=== PATIENT | female | born 1960 | race Caucasian/White ===

== ENCOUNTER 2024-09-11 11:12 | Outpatient (AMB) | payer MEDICARE, SELFPAY ==
--- NOTE | 2024-09-11 11:20 | MHC.OFFVIS ---
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 Patient states pain began about 1 year ago. She states certain movements trigger her pain. Reports occasional numbness and tingling. Patient takes Ibuprofen PRN with mild relief. Denies any injuries or surgeries to the left elbow. 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 She is left-hand dominant and states that she uses her left arm for most all activities due to right upper extremity chronic weakness and numbness. 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 She states the left elbow develops discomfort along the medial epicondyle when she is lifting or performing pushing and pulling activities. She has had no treatment to date on the left upper extremity. She also experiences occasional numbness and tingling which radiates down the arm into the 3rd 4th and 5th digit. [facility] Surgical History (Updated 09/11/24 @ 11:24 by SUNNY Pritchett) H/O brain surgery Social History (Updated 09/11/24 @ 11:23 by SUNNY Pritchett) Patient Tobacco Use Status: Former Tobacco user Current occupational status: retired Current occupation: left handed Review of Systems Const All systems reviewed & are unremarkable except as noted in HPI and below Physical Exam Vital Signs: BMI result Body Mass Index 26.6 Const General: cooperative and no acute distress Orientation/consciousness: patient oriented x3 Resp Effort & Inspection: normal respiratory effort and able to speak in complete sentences Cardio Peripheral pulses: Peripheral pulses 2+ throughout Neuro General: patient oriented x3 Extrem Other: Bilat Elbow skin intact. No erythema or swelling. ROM full without pain. Tenderness over the medial epicondyle and pain with resisted wrist flexion, Lt>Rt . NVI. Results Reviewed Results Reviewed: X-rays of the left elbow obtained in the office today are negative for any acute or chronic abnormalities. Assessment & Plan Assessment & Plan (1) Medial epicondylitis, left elbow: Code(s): M77.02 - Medial epicondylitis, left elbow Category: Medical (2) Lateral epicondylitis, right elbow: Code(s): M77.11 - Lateral epicondylitis, right elbow Category: Medical Plan We discussed options which include PT, NSAIDs and injections. She will defer on the injection today and proceed with PT and NSAIDs. If symptoms persist she will contact me for an injection, otherwise, prn. She was also fit for an armband for the left elbow today . Orders: Orders OT Evaluation and Treatment Today M77.02 - Medial epicondylitis, left elbow, M77.11 - Lateral epicondylitis, right elbow XR elbow LT min 3V Today M25.522 - Pain in left elbow Coding Level of Care Code New Pt Level 3 ([id number]) Complex EM visit Add On G2211 Diagnoses Medial epicondylitis, left elbow M77.02 Lateral epicondylitis, right elbow M77.11
[2024-09-11 11:21] VITALS: BMI 26.6
--- OUTSIDE RECORDS SUMMARY | 2024-09-11 15:04 | XMS_ITS | Data Portability ---
Author Organization [facility] Address [address] [place] [address] Assessment Encounter Date Assessment Date Assessment LastModified by Organization Details LastModified Time 07/20/2020 07/20/2020 #1 patient is at home, with No one present in the room #2 provider is at [facility] in a secure private location #3 This is a phone visit, unable to connect over video #4 Verbal &/or Written consent obtained #5 Length of medical discussion __11_ minutes Not available 07/20/2020 18:39:57 01/26/2021 01/26/2021 #1 patient is at home, with No one present in the room #2 provider is at [facility] in a secure private location #3 This is a phone visit, unable to connect over video #4 Verbal &/or Written consent obtained #5 Length of medical discussion _10__ minutes Not available 02/01/2021 18:40:00 02/24/2022 02/24/2022 Care Team/Specialists reviewed and updated. Reviewed recent hospitalizations for the past year. I reviewed Medicare covered prevention services and USPSTF recommendations for this patient. The following are recommended for you: Not available 02/24/2022 13:00:25 Plan of Treatment Reminders Order Date Submit Date Provider Last Modified By Organization Details Last Modified Time Details Appointments None recorded. Lab CMP, serum or plasma 2021 022 [facility], [address], [facility], [place], [address], 04:51:13 lipid panel, serum 2021 022 RAYNE [facility], [address], [address], [place], [address], 2 04:51:12 Referral dermatolog ist referral 2019 020 [facility] Jordyn Meng, [address] [facility], [address], [place], [address], 0 11:04:28 gastroente rologist referral - 61 yo F for routine screening, last was normal in 2011 022 [facility] Gastroenterol ogist, [address] [facility], [place], [address], 2 09:23:34 Procedures None recorded. Surgeries None recorded. Imaging None recorded. Medication Orders Intrarosa 6.5 mg vaginal insert [address] [facility], [address] [place] [address], [address], 2 09:39:29 lisinopril 40 mg tablet 2022 023 [facility][id number], [address] [place], [address], 3 11:41:39 Patient TargetsNo targets recorded. Patient Instructions Encounter Date Encounter Id Patient Instructions Last Modified By Organization Details Last Modified Time 07/20/2020 [id number] high blood pressure: care instructions Not available 07/20/2020 18:37:19 learning about high blood pressure Not available 07/20/2020 18:37:19 skin lesions: care instructions Not available 07/20/2020 18:31:40 01/26/2021 [id number] Decreased Female Libido: Care Instructions Not available 02/01/2021 18:35:31 02/24/2022 [id number] high blood pressure: care instructions Not available 02/24/2022 09:14:52 learning about high blood pressure Not available 02/24/2022 09:14:51 learning about colonoscopy Not available 02/24/2022 09:14:52 advance directives: care instructions Not available 02/24/2022 09:14:52 learning about breast cancer screening Not available 02/24/2022 09:14:52 preventing osteoporosis: care instructions Not available 02/24/2022 09:14:52 vision screen* Not available 0 02/24/2022 09:14:51 09/22/2022 [id number] high blood pressure: care instructions Not available 09/22/2022 11:41:37 learning about high blood pressure Not available 09/22/2022 11:41:37 body mass index: care instructions Not available 09/22/2022 11:51:58 Reason for Referral Paediatric Thoracic Physician Referral for S kin lesion Referring Physician: Kallie Hutson, [facility], Encounter Date: 07/20/2020 Materials Specialist Referral for Screening for malignant neoplasm of colon 61 yo F for routine screening, last was normal in 2011 Referring Physician: Reena Reagan [facility] Medicine, Encounter Date: 02/24/2022 Results Created Date Observation Date Name Description Value Unit Range Abnormal Flag Note LastModifiedBy Organization Detail LastModifiedTime 02/25/20 22 02/25/2022 LIPID PANEL WITH REFLE X TO DIREC T LDL cholesterol, total 142 mg/dL <200 normal Not Available [facility] [address], [address], 02/25/2022 04:51:12 02/25/20 22 02/25/2022 LIPID PANEL WITH REFLE X TO DIREC T LDL HDL cholesterol 36 mg/dL > or = 50 low Not Available [facility] [address], [address], 02/25/2022 04:51:12 02/25/20 22 02/25/2022 LIPID PANEL WITH REFLE X TO DIREC T LDL triglyceride s 113 mg/dL <150 normal Not Available [facility] [address] [place], [place], [address], 02/25/2022 04:51:12 02/25/20 22 02/25/2022 LIPID PANEL WITH REFLE X TO DIREC T LDL LDL-choleste rol 85 mg/dL _(tamiko c) normal Refer ence range : <100 Tiffany able range <100 mg/dL for prima ry preve ntion ; <70 mg/dL for patie nts with CHD or diabe tic patie nts with > or = 2 CHD risk facto rs. LDL-C is now calcu lated using the Maisha n-Hop kins calcu alexandre n, which is a valid ated novel metho d provi delon kristina r accur acy than the Fried uriel equat ion in the estim ation of LDL-C . Maisha layne SS et al. NIC. 2013; 310(1 9): 2061- 2068 (http ://ed ucati on.Qu robertNextlanding. DefenCall/f aq/FA Q164) Not Available [facility] [address], [place], [address], 02/25/2022 04:51:12 02/25/20 22 02/25/2022 LIPID PANEL WITH REFLE X TO DIREC T LDL chol/HDLC ratio 3.9 (calc ) <5.0 normal Not Available [facility] [address], [place], [address], 02/25/2022 04:51:12 02/25/20 22 02/25/2022 LIPID PANEL WITH REFLE X TO DIREC T LDL non HDL cholesterol 106 mg/dL _(tamiko c) <130 normal For patie nts with diabe kota plus 1 major ASCVD risk facto r, treat ing to a non-H DL-C goal of <100 mg/dL (LDL- C of <70 mg/dL ) is consi dered a thera peuti c optio n. Not Available [facility] [place] [facility] [address], [place], [address], 02/25/2022 04:51:12 02/25/20 22 02/25/2022 COMPR EHENS HAZEL METAB OLIC PANEL glucose 90 mg/dL 65-139 normal Non-f astin g refer ence inter blanca Not Available [facility] [place] [facility] [address], [place], [address], 02/25/2022 04:51:13 02/25/20 22 02/25/2022 COMPR EHENS HAZEL METAB OLIC PANEL urea nitrogen (BUN) 9 mg/dL 7-25 normal Not Available [facility] [place] [facility] [address], [place], [address], 02/25/2022 04:51:13 02/25/20 22 02/25/2022 COMPR EHENS HAZEL METAB OLIC PANEL creatinine 0.94 mg/dL 0.50-1 .05 normal Not Available [facility] [place] [facility] [address], [place], [address], 02/25/2022 04:51:13 02/25/20 22 02/25/2022 COMPR EHENS HAZEL METAB OLIC PANEL eGFR 68 mL/mi n/1.7 3m2 > or = 60 normal The eGFR is based on the CKD-E PI 2020 equat ion. To calcu late the new eGFR from a previ ous Creat inine or Cysta tin C resul t, go to https ://ww w.kid kristy.o rg/krisit alonso s/ kdoqi /gfr% 5Fcal culat or Not Available [facility] [place] [facility] [address], [place], [address], 02/25/2022 04:51:13 02/25/20 22 02/25/2022 COMPR EHENS HAZEL METAB OLIC PANEL BUN/creatini ne ratio NOT APPLIC ABLE (calc ) 6-22 Not Available [facility] [address], [place], [address], 02/25/2022 04:51:13 02/25/20 22 02/25/2022 COMPR EHENS HAZEL METAB OLIC PANEL sodium 138 mmol/ L 135-14 6 normal Not Available [facility] [address], [place], [address], 02/25/2022 04:51:13 02/25/20 22 02/25/2022 COMPR EHENS HAZEL METAB OLIC PANEL potassium 4.7 mmol/ L 3.5-5. 3 normal Not Available [facility] [address], [place], [address], 02/25/2022 04:51:13 02/25/20 22 02/25/2022 COMPR EHENS HAZEL METAB OLIC PANEL chloride 104 mmol/ L 98-110 normal Not Available [facility] [address], [place], [address], 02/25/2022 04:51:13 02/25/20 22 02/25/2022 COMPR EHENS HAZEL METAB OLIC PANEL carbon dioxide 28 mmol/ L 20-32 normal Not Available [facility] [address], [place], [address], 02/25/2022 04:51:13 02/25/20 22 02/25/2022 COMPR EHENS HAZEL METAB OLIC PANEL calcium 9.5 mg/dL 8.6-10 .4 normal Not Available [facility] [address], [place], [address], 02/25/2022 04:51:13 02/25/20 22 02/25/2022 COMPR EHENS HAZEL METAB OLIC PANEL protein, total 8.1 g/dL 6.1-8. 1 normal Not Available [facility] [address], [place], [address], 02/25/2022 04:51:13 02/25/20 22 02/25/2022 COMPR EHENS HAZEL METAB OLIC PANEL albumin 4.5 g/dL 3.6-5. 1 normal Not Available [facility] [address], [place], [address], 02/25/2022 04:51:13 02/25/20 22 02/25/2022 COMPR EHENS HAZEL METAB OLIC PANEL globulin 3.6 g/dL_ (calc ) 1.9-3. 7 normal Not Available [facility] [address], [place], [address], 02/25/2022 04:51:13 02/25/20 22 02/25/2022 COMPR EHENS HAZEL METAB OLIC PANEL albumin/glob ulin ratio 1.3 (calc ) 1.0-2. 5 normal Not Available [facility] [address], [place], [address], 02/25/2022 04:51:13 02/25/20 22 02/25/2022 COMPR EHENS HAZEL METAB OLIC PANEL bilirubin, total 0.5 mg/dL 0.2-1. 2 normal Not Available [facility] [address], [place], [address], 02/25/2022 04:51:13 02/25/20 22 02/25/2022 COMPR EHENS HAZEL METAB OLIC PANEL alkaline phosphatase 81 U/L 37-153 normal Not Available [facility] [address], [place], [address], 02/25/2022 04:51:13 02/25/20 22 02/25/2022 COMPR EHENS HAZEL METAB OLIC PANEL AST 24 U/L 10-35 normal Not Available [facility] [place] [facility] [address], [place], [address], 02/25/2022 04:51:13 02/25/20 22 02/25/2022 COMPR EHENS HAZEL METAB OLIC PANEL ALT 19 U/L 6-29 normal Not Available [facility] [place] [facility] [address], [place], [address], 02/25/2022 04:51:13 02/25/20 22 02/24/2022 visio n scree n* Test Type Snelle n Letter Not Available In-House Te st For Internal Use Only, Do Not Delete/merge, 02/24/2022 09:09:12 02/25/20 22 02/24/2022 visio n scree n* Wearing Corrective Lenses No Not Available In-Megan se Test For Internal Use Only, Do Not Delete/merge, 02/24/2022 09:09:12 02/25/20 22 02/24/2022 visio n scree n* Right (OD) 20/50 Not Available In-Hous e Test For Internal Use Only, Do Not Delete/merge, 02/24/2022 09:09:12 02/25/20 22 02/24/2022 visio n scree n* Left (OS) 20/50 Not Available In-House Test For Internal Use Only, Do Not Delete/merge, 02/24/2022 09:09:12 02/25/20 22 02/24/2022 visio n scree n* Both (OU) 20/50 Not Available In-House Test For Internal Use Only, Do Not Delete/merge, 02/24/2022 09:09:12 08/02/20 21 08/02/2021 CT, angio gram, head + neck, w/wo contr ast No observ ation record ed. [facility] [address], [place], [address], 08/04/2021 22:04:32 08/02/20 21 08/02/2021 CT, angio gram, head + neck, w/wo contr ast No observ ation record ed. ALEXANDRE [facility] [address], [place], [address], 08/04/2021 22:04:32 04/18/20 23 04/10/2023 colon oscop y scree osmany (PROC ) No observ ation record ed. [facility] Gastroenterol ogist [address] [place], [address], 04/18/2023 08:57:35 Result Notes None recorded. Problems Name Problem SNOMED Code Status Onset Date Resolution Date Notes Provider Name and Address Organization Details Recorded Time Chronic hepatiti s C 013621299 Completed 02/18/2019 Marilyharsh Becker [facility] 9 10:31:58 [facility] l hyperten rosa 68866432 Active Allie Larsen, RN [facility] 6 13:12:16 Malaise and fatigue 303111141 Completed 11/21/2016 Marily [facility] 7 09:45:32 Neoplasm of brain 416480432 Completed 200702/18/2019 NEOPLASM , BRAIN; [facility] 9 10:32:13 Joint pain 68645516 Completed 201008/19/2013 ARTHRALG IA Leisaquin Houston [facility] 6 11:25:14 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; off balance , problems with stairs Leisa Houston [facility] 6 11:25:14 Hyperhid rosis 569857545 Completed 201108/19/2013 HYPERHID ROSIS Leisa Houston [facility] 6 11:25:14 Acute hepatiti s C 388104498 Completed 200908/19/2013 HEPATITI S C WITHOUT HEPATIC COMA Leisa Houston [facility] 6 11:25:14 Abnormal involunt naty movement 171669799 Active 2007 TREMOR Leisa Houston [facility] 6 11:25:14 Neck pain 62493179 Completed 200902/18/2019 NECK PAIN Marilyharsh Becker [facility] 9 10:36:09 Acute bronchit is 24543558 Completed 201008/19/2013 BRONCHIT IS, VIRAL Leisaquin Houston [facility] 6 11:25:14 Depressi ve disorder 23594158 Active 2007 DEPRESSI ON; improved on antidepr essants Leisa Houston [facility] 6 11:25:14 Malaise and fatigue 107390013 Completed 201008/19/2013 [facility] 7 09:45:32 Shoulder joint pain 352211685 Completed 201011/21/2016 [facility] 7 09:45:28 Poor short-te rm memory 269449201 Active 2016 [facility] 7 13:19:23 History of hepatiti s C 85308104207 101 Active 2018 [facility] 9 10:31:55 History of malignan t neoplasm of brain 630605822 Active 2018 [facility] 9 10:32:10 Reduced libido 7199824 Active 2020 Reena Reagan PA-C [address] [place], [address] , [facility] 1 16:37:45 Problem Notes None recorded. Procedures Surgical History Date Name Laterality Status Provider Name and Address Organization Details Recorded Time 6 Joint Surgery completed Jennifer Mcnamara D.O. [facility] 08/19/2013 12:30:06 Imaging Results Imaging Date Name Status LastModified by Organization Details Last Modified Time 08/02/2021 CT, angiogram, head + neck, w/wo contrast completed [facility] [address], [place], [address], 08/04/2021 22:04:32 08/02/2021 CT, angiogram, head + neck, w/wo contrast completed [facility] [address], [place], [address], 08/04/2021 22:04:32 04/10/2023 colonoscopy screening (PROC) completed [address] Materials Specialist [address] [place], [address], 04/18/2023 08:57:35 Procedure Notes None recorded. Medical Equipment None Reported. Allergies Allergen ID Allergen Name Allergen Category Reaction Reaction Severity Criticality Documentation Date Start Date Code Code System Note Provider Name and Address Organization Details Recorded Time 420 codeine medicatio n itching Not available Not available 06/10/20122007 2670 RxNorm Not Available [facility] 2 12:27:10 Medications Name Sig Start Date Stop Date Status Note LastModified by Organization Details LastModified Time Estring 2 mg (7.5 mcg/24 hour) vaginal ring Insert 1 vaginal ring by vaginal route. 02/24 completed Not Available Not Available Not Available trazodone 50 mg tablet Take 1 tablet 3 times a day by oral route as directed . active Non-Rio t Not Available Not Available Not Available aspirin 325 mg tablet 1 DAILY PO 2011 active Not Available Not Available Not Avai lable metoprolo l succinate ER 50 mg tablet,ex tended release 24 hr TAKE ONE TABLET BY MOUTH ONCE DAILY active Not Available Not Available No t Available prednison e 20 mg tablet 05/14 completed Not Available Not Available Not Available clonazepa m 0.5 mg tablet 1 tab PO QHS 11/06 completed from her psychiat rist Not Available Not Available Not Available metoprolo l succinate ER 100 mg tablet,ex tended release 24 hr TAKE 1 TABLET BY MOUTH EVERY DAY active Not Available Not Available No t Available sertralin e 100 mg tablet 05/14 completed Not Available Not Available Not Available atenolol 25 mg tablet Take 1 tablet every day by oral route as directed . active Not Available Not Available No t Available clobetaso l 0.05 % topical cream 05/14 completed Not Available Not Available Not Available Neurontin 600 mg tablet 1 TAB PO QDAILY 05/14 completed Not Available Not Available Not Available amlodipin e 5 mg tablet Take 1 tablet every day by oral route. 05/21 completed Not Available Not Available Not Available triamcino lone acetonide 0.1 % topical cream APPLY A THIN LAYER TO THE AFFECTED AREA(S) BY TOPICAL ROUTE 2 TIMES PER DAY 03/11 completed Not Available Not Available Not Available oxycodone -acetamin ophen 5 mg-325 mg tablet 05/14 completed Not Available Not Available Not Available Tessalon Perles 100 mg capsule Take 1 capsule 3 times a day by oral route for 5 days. 11/21 completed Not Available Not Available Not Available Elavil 25 mg tablet Take 1 tablet every day by oral route. active from psychiat rist in late Apr. Pt doesn't remember exact dose. Not Available Not Available Not Available trazodone 100 mg tablet one TAB PO QHS PRN 2011 active from psychiat rist Not Available Not Available Not Available amlodipin e 10 mg tablet TAKE 1 TABLET BY MOUTH EVERY DAY. NO FURTHER REFILLS WITHOUT APPOINTM ENT IN CLINIC active Not Available Not Available No t Available clonazepa m 2 mg tablet 05/14 completed Not Available Not Available Not Available hydrochlo rothiazid e 12.5 mg capsule Take 1 capsule every day by oral route. 2013 active Not Available Not Available Not Avai lable lisinopri l 30 mg tablet Take 1 tablet every day by oral route. 2014 active Not Available Not Available Not Avai lable hydrocodo ne 5 mg-acetam inophen 500 mg tablet 05/14 completed Not Available Not Available Not Available hydrochlo rothiazid e 25 mg tablet Take 1 tablet every day by oral route. 2014 active Not Available Not Available Not Avai lable estradiol 0.01% (0.1 mg/gram) vaginal cream Insert 4 g every day by vaginal route as directed for 14 days. 02/24 completed Not Available Not Available Not Available lisinopri l 40 mg tablet TAKE 1 TABLET BY MOUTH EVERY DAY 2023 active Not Available Not Available Not Avai lable amoxicill in 500 mg-potass ium clavulana te 125 mg tablet 05/14 completed Not Available Not Available Not Available escitalop arthur 20 mg tablet 1 PO ONCE DAILY ; MEDICATI ON PROVIDED BY MARILOU Perez PHYSICOC N active from psychiat rist Not Available Not Available Not Available Premarin 0.625 mg tablet 1/2 TO 1 TAB PO DAILY DIRECTED 05/14 completed Not Available Not Available Not Available clonazepa m 0.5 mg po at bedtime active by psych Not Available Not Available No t Available multivita min 11/06 completed Not Available Not Available Not Available Tylenol Arthritis Pain 2 TABS PO QHS PRN SHOULDER PAIN 05/14 completed Not Available Not Available Not Available Fish Oil 300 mg-1,000 mg capsule 1 CAPSULE PO DAILY 2011 active forgets to take this usually Not Available Not Available Not Available hydrochlo rothiazid e 12.5 mg tablet Take 1 tablet every day by oral route. 2014 active Disconti nued at patients request Not Available Not Available Not Available Harvoni 90 mg-400 mg tablet Take 1 tablet every day by oral route. 12/25 completed Not Available Not Available Not Available Vitamin B12 11/06 completed OTC Not Available Not Available Not Available Intrarosa 6.5 mg vaginal insert Insert 1 vaginal insert every day by vaginal route for 14 days. 02/24 completed Not Available Not Available Not Available Vitals Date Recorded Body height Provider Name an d Address Organization Details Last Updated DateTime 03/11/2021 165.1 cm Nithya [facility] 03/11/2021 11:00:03 Date Recorded Body mass index (BMI) Body weight Provider Name and Address Organization Details Last Updated DateTime 03/11/2021 24.1 kg/m2 99714.89 g Nithya [facility] 03/11/2021 11:00:22 Date Recorded Oxygen saturation Oxygen saturation in Arterial blood by Pulse oximetry Provider Name and Address Organization Details Last Updated DateTime 03/11/2021 99 % 99 % Nithya [facility] 03/11/2021 11:04:26 Date Recorded Heart rate Provider Name an d Address Organization Details Last Updated DateTime 03/11/2021 64 /min Nithya [facility] 03/11/2021 11:04:35 Date Recorded Body height Provider Name an d Address Organization Details Last Updated DateTime 02/24/2022 165.1 cm Nithya [facility] 02/24/2022 08:48:22 Date Recorded Body mass index (BMI) Body weight Provider Name and Address Organization Details Last Updated DateTime 02/24/2022 27.3 kg/m2 10585.55 g Nithya [facility] 02/24/2022 08:48:30 Date Recorded Heart rate Provider Name an d Address Organization Details Last Updated DateTime 02/24/2022 59 /min Nithya [facility] 02/24/2022 09:04:08 Date Recorded Oxygen saturation Oxygen saturation in Arterial blood by Pulse oximetry Provider Name and Address Organization Details Last Updated DateTime 02/24/2022 99 % 99 % Nithya [facility] 02/24/2022 09:04:19 Date Recorded Body height Provider Name an d Address Organization Details Last Updated DateTime 09/22/2022 165.1 cm Nithya [facility] 09/22/2022 11:32:21 Date Recorded Body mass index (BMI) Body weight Provider Name and Address Organization Details Last Updated DateTime 09/22/2022 30.5 kg/m2 26460.5 g Nithya [facility] 09/22/2022 11:32:40 Date Recorded Oxygen saturation Oxygen saturation in Arterial blood by Pulse oximetry Provider Name and Address Organization Details Last Updated DateTime 09/22/2022 99 % 99 % Nithya [facility] 09/22/2022 11:34:47 Date Recorded Heart rate Provider Name an d Address Organization Details Last Updated DateTime 09/22/2022 61 /min Nithya [facility] 09/22/2022 11:34:50 Date Recorded Systolic blood pressure Diastolic blood pressure Provider Name and Address Organization Details Last Updated DateTime 03/11/2021 135 mm[Hg] 83 mm[Hg] Nithya [facility] 03/11/2021 11:05:00 Date Recorded Systolic blood pressure Diastolic blood pressure Provider Name and Address Organization Details Last Updated DateTime 02/24/2022 132 mm[Hg] 83 mm[Hg] Nithya [facility] 02/24/2022 08:54:42 Date Recorded Systolic blood pressure Diastolic blood pressure Provider Name and Address Organization Details Last Updated DateTime 09/22/2022 135 mm[Hg] 85 mm[Hg] Nithya [facility] 09/22/2022 11:35:34 Date Recorded Systolic blood pressure Diastolic blood pressure Provider Name and Address Organization Details Last Updated DateTime 09/22/2022 126 mm[Hg] 68 mm[Hg] Reena Reagan PA-C [address] [place] [address], [id number] 09/22/2022 11:50:42 Social History Question Answer Notes LastModified by Organizat ion Details LastModified Time Tobacco Smoking Status Former Smoker as of 02/2016 Not Available [facility] 06/15/2020 03:15:23 Do You Have An Advance Directive? Yes [id number] Information not available 06/15/2020 What Is Your Level Of Alcohol Consumption? None [id number] Information not available 06/15/2020 Are You Blind Or Do You Have Difficulty Seeing? No Information not available 02/24/2022 Is Blood Transfusion Acceptable In An Emergency? Yes Information not available 02/24/2022 What Is Your Level Of Caffeine Consumption? Moderate [id number] Information not available 06/15/2020 How Much Tobacco Do You Chew? None [id number] Information not available 06/15/2020 In The 14 Days Before Symptom Onset, Have You Had Close Contact With A Laboratory-confir med COVID-19 While That Case Was Ill? No Information not available 02/24/2022 In The 14 Days Before Symptom Onset, Have You Had Close Contact With A Person Who Is Under Investigation For COVID-19 While That Person Was Ill? No Information not available 02/24/2022 Are You Currently Employed? No [id number] Information not available 06/15/2020 Are You Deaf Or Do You Have Serious Difficulty Hearing? No Information not available 02/24/2022 What Type Of Diet Are You Following? REGULAR [id number] Information not available 06/15/2020 Do You Or Have You Ever Used E-cigarettes Or Vape? Never Used Electronic Cigarettes [id number] Information not available 06/15/2020 Education 12 Information no t available 08/19/2013 What Is Your Occupation? Unemployed [id number] Information not available 06/15/2020 How Many Days Of Moderate To Strenuous Exercise, Like A Brisk Walk, Did You Do In The Last 7 Days? 5 Information not available 02/24/2022 On Those Days That You Engage In Moderate To Strenuous Exercise, How Many Minutes, On Average, Do You Exercise? 60 Information not available 02/24/2022 Have There Been Any Changes To Your Family Or Social Situation? No Information no t available 02/24/2022 When Did You Quit Smoking? 6-10yearssinc [email or web address] e Information not available 02/24/2022 Are There Any Guns Present In Your Home? No [id number] Information not available 06/15/2020 Which Of Your Hands Is Dominant? Right Information not available 02/24/2022 Hard Of Hearing Or Deaf In One Or Both Ears? No Information not available 07/13/2016 Single Or Multi-level Home/work? Multi Level Home Information not available 11/21/2016 What Is Your Home Situation? Other Information not available 02/24/2022 Legally Blind In One Or Both Eyes? No Information no t available 07/13/2016 Live Alone Or With Others? With Others Information not available 08/19/2013 [place] - Do You Sometimes Drink Beer, Wine, Or Other Alcoholic Beverages? No Information not available 06/25/2017 [place] - How Many Times In The Past Year Have You Used An Illegal Drug Or Used A Prescription Medication For Non-medical Reasons? 0 Information not available 06/25/2017 [place] - Women >18+ And Men >65: How Many Times In The Past Year Have You Had 4 Or More Drinks In A Day? 0 Information not available 06/25/2017 Are You Able To Care For Yourself At Home Including Activities Of Bathing, Dressing, And Walking? Yes Information not available 11/21/2016 Are You Able To Handle Your Own Medications, Money/finances, Shopping, And Housekeeping Chores? Yes Information not available 11/21/2016 Have You Been Hospitalized In The Past 12 Months? No [email or web address] Information not available 02/18/2019 Homeless Not Homeless Living With Daughter [email or web address] Information not available 02/18/2019 In The Past Month, Was There Any Day When You Or Someone In Your Family Went Hungry Because You Didn't Have Money For Food? No [email or web address] Information not available 05/21/2018 Do You Need Help Finding Clothing Or Other Supplies For Yourself Or For Your Children? No [email or web address] Information not available 05/21/2018 Do You Need Medicine But Cannot Buy It Because It Is Too Expensive? No [email or web address] Information not available 05/21/2018 Do You Need Transportation To Medical Appointments? No Information not available 05/21/2018 Do You Worry That You Can't Pay Your Utility Bill(s)? (electric, Gas, Heating Oil, Telephone) No [email or web address] Information not available 05/21/2018 Do You Prefer To Learn By: All Of The Above [email or web address] Information not available 02/18/2019 Do You Have Any Of The Following Barriers To Learn: I Cannot Read [email or web address] Information not available 02/18/2019 Last [facility] Completion Date 09/22/2022 Information not available 09/22/2022 Marital Status jerrell Blake n not available 08/19/2013 Do You Have A Medical Power Of Kettle Coordinator? No Information not available 02/24/2022 What Was The Date Of Your Most Recent Tobacco Screening? 09/22/2022 Information not available 09/22/2022 How Many Children Do You Have? 1 Information not available 02/24/2022 Do You Have Any Pets? Yes Information not available 02/24/2022 What Is Your Relationship Status? Information not available 02/24/2022 Do You Use Your Seat Belt Or Car Seat Routinely? Yes [id number] Information not available 06/15/2020 Seat Belts Used Routinely Yes [email or web address] Information not available 02/18/2019 Are You Sexually Active? No [id number] Information not available 06/15/2020 Do You Have Smoke And Carbon Monoxide Detectors In Your Home? Yes [id number] Information not available 06/15/2020 At What Age Did You Start Smoking Tobacco? 18 [id number] Information not available 06/15/2020 Are You Passively Exposed To Smoke? No Information no t available 02/24/2022 Do You Or Have You Ever Used Smokeless Tobacco? Never Used Smokeless Tobacco [id number] Information not available 06/15/2020 Are There Any Smokers In Your House? No Information not available 02/24/2022 How Much Tobacco Do You Smoke? No [id number] Information not available 06/15/2020 Do You Use Sunscreen Routinely? Yes [id number] Information not available 06/15/2020 How Many Years Have You Smoked Tobacco? 30 [id number] Information not available 06/15/2020 Year In School 12 [email or web address] Informatio n not available 11/21/2016 Sex: Female Functional Status Question Answer Note LastModified by Organizat ion Details LastModified Time Do you have transportation difficulties? No Information not available 02/24/2022 Are you able to care for yourself? Yes [id number] Information not available 06/15/2020 What is your exercise level? Moderate Information not available 02/24/2022 Mental Status Question Answer Note LastModified by Organization D etails LastModified Time Do you have difficulty concentrating, remembering or making decisions? No Information no t available 02/24/2022 Family History Relationship Description Onset Age of this Age Resolved Age Notes LastModified by Organization Details LastModified Time Mother Hypertensive disorder previo usly record ed as Hypert ension [email or web address] Not available 09/10/2015 10:57:51 Mother Rupture of aorta 80 80 Not available 2017 11:03:31 Father Hypertensive disorder previo usly record ed as Hypert ension [email or web address] Not available 09/10/2015 10:57:51 Maternal Aunt Diabetes mellitus Not available 08/14 10:57:51 Unspecified Relation Heart disease [email or web address] Not available 08/14 10:57:51 Medical History Condition Response Gout N Anxiety/Depression N Renal Failure N Kidney Stones N Breast Cancer N Erectile Dysfunction N Lung Cancer N Testicular Cancer N Reflux Disease (GERD/Heartburn/Reflux) N Incontinence N Hepatitis (A,B or C) N Drug Abuse/Addiction N Chronic Neck or Back Pain N Post Traumatic Stress Disorder N Headaches/Migraines N Alcoholism N Tuberculosis or a Positive PPD N Hemorrhoids N Seizure Disorder (Epilepsy) N Frequent Sinus Infections N Frequent Ear Infections N Blood Clot N Other type of Cancer N Stroke N ADHD N Endometriosis N High Cholesterol N Colorectal Cancer N Skin Cancer N Rheumatoid Arthritis N Schizophrenia N Fibromyalgia N Panic Disorder N Irritable Bowel Syndrome N Chronic Fatigue Syndrome N Osteoarthritis N Scoliosis N Thyroid Disorder or Cancer N Frequent Urinary Tract Infections N Ulcers or Gastrointestinal Bleed N Prostate Cancer N Gallstones N Eating Disorder N PreDiabetes N Anemia N COPD (emphysema or chronic bronchitis) N Diabetes N Cervical/Uterine/Ovarian Cancer N Cataracts N Benign Prostate Hyperplasia (BPH) N Allergic Rhinitis N Insomnia N Eczema N Obsessive Compulsive Disorder (OCD) N Asthma N Heart Attack N Lupus N Psoriasis N Crohn's Disease or Ulcerative Colitis N Bipolar Disorder N Autism N Sleep Apnea N AIDS or HIV N Heart Disease N Hypertension N Osteoporosis N Gynecological History Statement/Question Response Menses Monthly N If Post Menopausal, Age at Menopause 41 Current Control Method Menopause Obstetrics History GPAL:G 1 P 1 0 0 1 Type Value Full Term 1 Living 1 Total 1 Immunizations Vaccine Type Date Status Note Provider Name and Address Organization Details Recorded Time Influenza, split virus, quadrivalent, PF 017 completed Not Available [facility] 08/30/2019 02:13:19 Hep A, adult 018 completed Not Available [facility] 08/30/2019 02:13:22 Hep B, adult 018 completed Not Available [facility] 08/30/2019 02:13:18 Hep B, adult 018 completed Not Available [facility] 08/30/2019 02:13:30 Influenza, split virus, trivalent, preservative 003 completed Not Available [facility] 06/10/2012 14:19:10 Influenza, split virus, trivalent, preservative 010 completed Not Available [facility] 09/13/2019 02:10:44 Td (adult), 2 Lf tetanus toxoid, preservative free, adsorbed 008 completed Not Available [facility] 06/10/2012 14:19:10 pneumococcal polysaccharide PPV23 010 completed Not Available [facility] 09/13/2019 02:10:44 Influenza, split virus, quadrivalent, PF 018 cancelled patient objection Not Available [facility] 08/30/2019 02:13:37 Tdap 019 completed Not Available [facility] 08/30/2019 02:13:59 Influenza, split virus, quadrivalent, PF 020 [facility] 16:28:51 Influenza, split virus, quadrivalent, PF 014 completed Not Available [facility] 08/30/2019 02:12:34 Influenza, split virus, quadrivalent, PF 016 completed Not Available [facility] 08/30/2019 02:12:53 Past Encounters Encounter ID Performer Location Encounter Start Date Encounter Closed Date Diagnosis/Indication Diagnosis SNOMED-CT Code Diagnosis ICD10 Code Diagnosis Note [id number] [address] 06/09/2012 19:01:22 06/09/2012 19:01:[id number] [place] [address] 06/09/2012 19:01:22 06/09/2012 19:01:[id number] [address] 06/09/2012 19:01:22 06/09/2012 19:01:[id number] [place] [address] 06/09/2012 19:01:22 06/09/2012 19:01:22 [id number] [facility] [address] [place] [address] 06/09/2012 19:01:22 06/09/2012 19:01:22 [id number] [facility] [address] [place] [address] 06/09/2012 19:01:22 06/09/2012 19:01:22 [id number] [facility] [address] [place] [address] 06/09/2012 19:01:22 06/09/2012 19:01:22 [id number] [facility] [address] [place] [address] 06/09/2012 19:01:22 06/09/2012 19:01:22 [id number] [facility] [address] [place] [address] 06/09/2012 19:01:23 06/09/2012 19:01:23 [id number] [facility] [address] [place] [address] 06/09/2012 19:01:23 06/09/2012 19:01:23 [id number] [facility] [address] [place] [address] 06/09/2012 19:01:23 06/09/2012 19:01:23 [id number] [facility] [address] [place] [address] 06/09/2012 19:01:23 06/09/2012 19:01:23 [id number] [facility] [address] [place] [address] 06/09/2012 19:01:23 06/09/2012 19:01:23 [id number] [facility] [address] [place] [address] 04/20/2008 00:00:00 [id number] [facility] [address] [place] [address] 04/20/2011 00:00:00 [id number] [facility] - [facility] [address] [place] [address] 05/05/2010 00:00:00 [id number] [facility] - [facility] [address] [place] [address] 03/21/2010 00:00:00 [id number] [facility] - [facility] [address] [facility] [place] [address] 10/26/2010 00:00:00 [id number] [facility] - [facility] [address] [facility] [place] [address] 06/22/2010 00:00:00 [id number] [facility] - [facility] [address] [place] [address] 03/12/2012 00:00:00 [id number] [facility] - [facility] [address] [facility] [place] [address] 11/16/2011 00:00:00 [id number] [facility] - [facility] [address] [place] [address] 04/30/2012 00:00:00 [id number] [facility] - [facility] [address] [place] [address] 12/10/2010 00:00:00 [id number] [facility] - [facility] [address] [place] [address] 08/26/2008 00:00:00 [id number] [facility] - [facility] [address] [place] [address] 05/24/2011 00:00:00 [id number] [address] 05/14/2013 13:43:00 05/14/2013 15:16:37 [id number] [place] [address] 07/07/2013 10:12:58 07/07/2013 11:51:07 Neoplasm of brain [id number] Form completed for patient's insurance, copy to chart, original to pt to mail. Chronic hepatitis C [id number] Has side efffects of the 3 hep C treatments . Neck sore, muscles in shoulders tight, affects back. Grinding her teeth. Never ground her teeth prior to the hep C treatment. Shaky head. Pulmonary aspiration [id number] Muscular hypertonicity 24167620 I taught exercise to pt today to help with her hypertonic neck muscles. [id number] Leisa Houston [facility] [address] [place] [address] 08/19/2013 10:33:01 08/19/2013 13:19:18 Adult health examination [id number] Pt states she made appointmen t for Wellness Visit and we have tried to include all the items on the Medicare Wellness exam with today's PE. Flu shot today. Did colonoscop y less than a year ago. Mammo ref Chronic hepatitis C 784079389 Has side efffects of the 3 hep C treatments . Neck sore, muscles in shoulders tight, affects back. Grinding her teeth. Never ground her teeth prior to the hep C treatment. Shaky head. Abnormal i nvoluntary movement [id number] These may be sequelae of Hep C treatments or her brain neoplasm. They are not progressin g, and pt is managing without ambulatory aids at this time. [id number] Franci Guzman [facility] [address] [place] [address] 05/12/2014 14:24:07 05/12/2014 15:11:21 Mucocele of mouth [id number] Mucocele on right lower cheek 3mm diameter - If ENT provider she is seeing in 2 days will not remove okay to refer to ENT Dr Krishnan for evaluation . pt bites this frequently and it causes her pain Pre-surger y evaluation [id number] EKG shows sinus bradycadia Influenza vaccine needed [id number] Leisa Houston [facility] [address] [place] [address] 07/24/2014 09:44:44 07/24/2014 10:38:49 Essential hypertension 86372839 Elevated BP today, reviewed low sodium diet. She will add HCTZ to her medication , if she is not noticing an improvemen t she will call and she will increase her dose to 25mg daily. Follow up in one month for a blood pressure check after adding a new medication . Chronic hepatitis C 577332406 We discussed her meeting with our Jackelyn Coley MD. She will give it some thought and call to schedule. Her levels have been stable. Declined to check the status of Hep C today. Weight increased 575107529 Reviewed that she has not gained additional weight over the past 3 months. It is more important that she quit smoking, great job. She can now work on her weight loss. If she would like to meet with a Guang Lian Shi Dai she will let us know. [id number] Leisa OVALLE [address] [place] [address] 08/28/2014 10:06:18 08/28/2014 10:38:31 Essential hypertension 55828733 Elevated BP today bu improved with 12.5mg of HCTZ will increase to 25mg of HCTZ. Follow up in one month for a blood pressure check after adding this new medication . She will continue to monitor at home. Chronic hepatitis C 035253582 We discussed her meeting with our Jackelyn Hep C . She will give it some thought and call to schedule. Her levels have been stable. Checking the status of Hep C today. Weight increased 300620525 Reviewed that she has only gained additional 3lbs over the past 3 months. It is more important that she quit smoking, great job. She can now work on her weight loss. If she would like to meet with a Guang Lian Shi Dai she will let us know. Malaise and fatigue 350094551 RBC count low at last check, will re-check today as well as B12. [id number] Leisa OVALLE [address] [place] [address] 03/17/2015 14:32:22 03/17/2015 15:48:02 Neoplasm of brain 761537117 Will refer back to her prior neurologis t, she complains of occasional symptoms. Essential hypertension 93832369 She will start 12.5mg of HCTZ, if this is not effective enough she will send a message and I will increase the dose. [id number] MD YAMILE Buckley [address] [place] [address] 08/09/2015 10:51:39 08/09/2015 11:56:30 Essential hypertension 41387507 I10 HTN not controlled - Refill HCTZ 12.5mg po daily - Increase lisinopril to 40mg po daily - Start Amlodipine 5mg po daily - Stop metoprol (pt has low hear rate and cannot increase medication in future) - Due to elevated BP despite 3 medication will evaluate for Renal artery stenosis with renal artery doppler - Order CMP and microalbum in [id number] Leisa Celso OVAL[facility] [address] [place] [address] 09/10/2015 10:22:37 09/10/2015 12:29:29 Essential hypertension 11410361 I10 She will wean herself off of 12.5mg of HCTZ, will increase amlodipine if needed. Reviewed how to wean, she will start every other day and then every two days until her current script is gone. Reviewed the adverse effects of discontinu ing this medication . She will continue to monitor her BP at home. If her BP increases after discontinu ation of HCTZ she will return to the office or call and I will increase her norvasc. Chronic hepatitis C 1283 60306 B18.2 Feeling very tired today, referred her to Dr Winn in [place] for consultati on. She was treated unsuccessf ulmeryl in the past. We discussed her meeting with our Jackelyn Coley MD. She will give it some thought. Her levels have been slowly increasing . She declined labs today. [id number] Leisa Houston YAMILE [address] [place] [address] 02/09/2016 14:48:15 02/09/2016 15:49:31 Essential hypertension 47254755 I10 She will continue to monitor her BP at home. If her BP continues to be elevated will increase amlodipine to 10mg. She will return to the office or send a portal message and I will increase her norvasc. Chronic hepatitis C 1283 27935 B18.2 She has not scheduled with Dr Winn for consultati on. She was treated unsuccessf ully in the past. Her levels have been slowly increasing . Will continue to check labs annually. [id number] Marily Becker YAMILE [address] [place] [address] 07/13/2016 11:20:00 07/13/2016 12:41:30 Essential hypertension 90394709 I10 - BP 148/100, no meds in last 2 weeks but states BP was similar last month when she had her meds- will increase amlodipine from 5mg to 10mg- advised to do cardio in gym 2-3x/week (just joined)Darion e all medication s as prescribed . - praised for quitting smoking in february! Influenza vaccine needed [id number] 106 Z23 Chronic hepatitis C 1283 54623 B18.2 last labs checked 08/2014, will recheck Mixed hyperlipidemia 267 543085 E78.2 -last lipids checked 2013 and were abnormal, will check today and also cmp in case we need to start statin- advised on healthy diet [id number] Marily OVALLE [address] [place] [address] 08/17/2016 09:14:24 08/17/2016 10:16:01 Essential hypertension 85580185 I10 - BP 140/80, amlodipine increased from 5mg to 10mg 1 month ago- will continue amlodipine 10mg - joined gym but hasn't used yet, encouraged to go 2-3x/week- joined weight watchers (not for weight but wants to eat better) Chronic hepatitis C 1283 63175 B18.2 - reminded pt she has appt 09/13/16 with TABATHA/ Otalgia 65427544 H92.02 - minor L ear pain x 3 days- on exam WNL- advised on tylenol prn for pain Screening for malignant neoplasm of colon 029621139 Z12.11 - record release form completed, Anthony working on finding report of most recent colonoscop y Breast scr eening declined [id number] Z53.20 - pt refusing to go to [facility] or [place] for mammo, wants to wait until mammo van is in the area [id number] NHAN Ball [address] [place] [address] 10/27/2016 10:13:49 10/27/2016 11:25:14 Acute upper respiratory infection 38429627 J06.9 -Physical exam shows no infectious findings, patient most likely suffering from symptoms associated with a viral infection- Patient to take antitussiv e as prescribed -Advised patient to rest as much as possible until feeling better, take an over-the-c ounter pain medicine, such as Tylenol as needed for pain and fever, drink plenty of fluids, including hot fluids, such as tea or soup to relieve congestion in nose and throat, try to clear mucus from lungs by breathing deeply and coughing, gargle with warm salt water once an hour to help reduce swelling and throat pain and do not smoke or allow others to smoke around you [id number] Marily OVALLE [address] [facility] [place] [address] 11/21/2016 08:45:54 11/21/2016 10:26:06 Adult health examination 604481698 Z00.00 Z13.820 Z12.31 - 56 y/o F with chronic hep c, hx of brain tumor, htn, depression - last pap 08/2013, neg cytology/n ep HPV, next due 08/2018- due for mammo, to schedule with mammo [email or web address] Screening for malignant neoplasm of colon 069609090 Z12.11 - colonoscop y 06/2012, not due until 2021 Chronic hepatitis C 1283 39087 B18.2 - tried treatment 10 years ago, 8 years ago, and 6 years ago without success - cancelled appt with dr pettit to discuss hep c treatment due to fear of costs of treatment- advised pt treatment will likely be covered by insurance but i will check on this and then reschedule her for an appt with [facility]/ Essential hypertension 75777340 I10 - BP 130/82 today, well controlled reports she is only taking 2 out of the 3 BP medication , pt to call back this afternoon and let us know which one she is not taking- gets frequent physical activity at job at [employer] Depressive disorder 3548 9007 F33.1 - stable, PHQ 0/6, continue tx with psychiatri (takes klonopin and lexapro from psych) [id number] Zaida Pettit MD [facility]ZZ NQ-ADULT DO NOT USE [address] [place] [address] 12/14/2016 10:56:34 12/14/2016 12:17:36 Chronic hepatitis C 106256007 B18.2 - per patient diagnosed in 2002- unclear transmissi on - ? tattoo- denies blood transfusio n, drugs- no sexually active at this moment- h/o treatment x3 - last time approx 10 years ago - IFN +RIB- will request records- no tobacco,al cohol- + test in 07/2016, prior per chart 2013 +- pp GT1- will complete w/u today- oder for liver US given- counseling to avoid transmissi on- RTC with results Lymphadenopathy 23916483 R59.0 - onseT: 1 - 2 weeks ago- a/w sore throat/ nasal congestion - most likely viral etiology- gargling with salt and water, nsaids as needed- labs as below- RTC with PCP Essential hypertension 73859346 I10 - BP high today- didn't take BP meds- ED precaution given- advise to be compliant- RTC with PCP [id number] Marily OVALLE [address] [place] [address] 06/25/2017 09:36:22 06/25/2017 11:36:44 Influenza vaccine needed [id number] 106 Z23 - educated, willing to proceed Essential hypertension 18448531 I10 - 150s/80s, uncontroll ed- increase metoprolol succinate ER from 50mg daily to 100mg daily, continue lisinopril 40mg- increase physical activity level, goal 30 minutes per day- counselled on weight loss, advised to return to weight watchers, OA or tracking food on melody - f/u 1 month Chronic hepatitis C 1283 98683 B18.2 - has not followed up with dr pettit after OV 12/2016, encouraged she do so [id number] Marily OVALLE [address] [place] [address] 07/24/2017 10:37:09 07/24/2017 11:40:08 Essential hypertension 40444231 I10 - 170s-180s/ 90s-100s today but asymptomat ic- continue lisinopril 40mg daily and metoprolol succinate 100mg daily- counselled on 2g sodium diet- add amlodipine 5mg daily (counselle d on r.b.s.e.), f/u 6 days and may titrate up Mixed hyperlipidemia 267 387440 E78.2 - last lipids 07/2016, recheck today [id number] MD YAMILE Buckley [address] [place] [address] 07/31/2017 09:29:49 07/31/2017 10:43:12 Essential hypertension 64480921 I10 HTN controlled with addition of amlodipine . She is tolerating new medication with no side effects to corrected bood pressure- Continue Metoprolol ER 100mg po daily- Continue Lisinopril 40mg po daily- Refill Amlodipine 5mg po daily- Pt to f/u in 2 months with PCP [id number] Zaida Pettit MD ZZZ NQ-ADULT DO NOT USE [address] [place] [address] 08/28/2017 12:52:03 08/28/2017 14:10:09 Chronic hepatitis C 786061725 B18.2 - per patient diagnosed in 2002, s/p tx with IFN +RIB- failure- unclear transmissi on - ? tattoo- no sexually active- no alcohol or drug abuse- GT1 , F3- Hep b Core Ab +- Hep A Ab neg- will give vaccines today- will update labs- will contact pt with approval- US in 01/30/17 no focal mass, no cirrhosis- counseling to avoid transmissi on- counseling safe sex practice- RTC when medication is approved Essential hypertension 26280931 I10 - continue lifestyle modificati on- ED precaution given- RTC with PCP Infective hepatitis immunization 583915943 Z23 [id number] MD Jannet HaleyZZ NQ-ADULT DO NOT USE [address] [place] [address] 10/09/2017 14:45:33 10/09/2017 15:29:47 Chronic hepatitis C 403816108 B18.2 - s/p tx with IFN +RIB- failure- unclear transmissi on - ? tattoo- no sexually active- no alcohol or drug abuse- GT1 , F3- Hep b Core Ab +- Hep A Ab neg - received first dose- US in 01/30/17 no focal mass, no cirrhosis- counseling to avoid transmissi on- counseling safe sex practice- start Harvoni 4 weeks ago- no significan t side effects, compliant- labs today- RTC in 4 weeks [id number] Zaida Pettit MD ZZZ NQ-ADULT DO NOT USE [address] [place] [address] 11/06/2017 13:03:47 11/06/2017 16:53:08 Chronic hepatitis C 638956005 B18.2 - s/p tx with IFN +RIB- failure, currently on Harvoni treatment- unclear transmissi on - ? tattoo- no sexually active- no alcohol or drug abuse- GT1 , F3- Hep b Core Ab +, Hep B S Ab neg - currently receiving booster- pending second dose of Hep A vaccine- US in 01/30/17 no focal mass, no cirrhosis- compliant with appt and labs- HCV RNA @ 4 weeks detectable , repeat at 6 weeks undetectab le- counseling to avoid transmissi on- counseling safe sex practice- RTC in 4 weeks with labs Infective hepatitis immunization 915758940 Z23 [id number] Zaida Pettit MD ZZZ NQ-ADULT DO NOT USE [address] [place] [address] 12/25/2017 13:01:29 12/25/2017 13:45:58 Chronic hepatitis C 300925916 B18.2 - s/p tx with IFN +RIB- failure- completed 12 weeks treatment with Harvoni- no sexually active- no alcohol or drug abuse- GT1 , F3- Hep b Core Ab +, Hep B S Ab neg- pending second dose of Hep A vaccine- US in 01/30/17 no focal mass, no cirrhosis- last HCV RNA undetected - counseling to avoid transmissi on- counseling safe sex practice- SVR 12 weeks order given- RTC as needed [id number] Marily OVALLE [address] [place] [address] 05/21/2018 10:47:14 05/21/2018 13:22:53 Essential hypertension 00313601 I10 - elevated- increase amlodipine to 10mg daily- cont lisinopril 40mg daily and metoprolol succinate ER 100mg daily- cont with goals for 10,000 steps per day- encouraged reduction in salt intake- f/u 3-4 weeks for repeat BP at [facility] Influenza vaccine needed [id number] 106 Z23 - educated, declined History of hepatitis C 6228965497 9101 Z86.19 - treated for hep c in the spring , never had final f/u with K[facility]/ID/- will check hep c viral load Family his tory of dissection of aorta 519660657 Z82.49 - mother with aortic rupture at age 80- pt with 30 year pack history, quit 5 years ago- will reach out to colleague to check if she needs abd u/s for screening and get back to patient [id number] Marily OVALLE [address] [place] [address] 10/28/2018 15:43:02 10/28/2018 16:50:19 Essential hypertension 11628884 I10 - stable- continue amlodipine 10mg daily, lisinopril 40mg daily, and metoprolol succinate ER 100mg daily- check cmp and lipids- encouraged continued efforts on weight loss- encouraged increased physical activity and low sodium diet- follow up CPE 02/2019 Eruption 640225536 R21 - unclear etiology of chronic hyperpigme nted macules to BL hands- use topical steroid cream sparingly- refer to derm for assistance (no referral needed due to medicare) Increased body mass index 96592656 E66.3 - BMI 28.8- working the weight watchers program; advised to continue with program and weekly weights- f/u RD if hitting a road block Body mass index 25-29 - overweight 567120201 Z68.28 - as above Active or passive immunization 758718004 Z23 - educated, willing to proceed [id number] Marily OVALLE [address] [place] [address] 02/18/2019 10:05:33 02/18/2019 12:31:41 Adult health examination 374441227 Z00.00 Z13.820 Z12.31 - 58 y/o F hx of brain tumor with some residual effects (reports she followed up for 5 years post tx and no longer needs tx), hx hep c (recently tx'd), depression and htn- declined STI screen- reviewed calcium and vitamin d requiremen ts and physical activity recommenda tions - pap done today- colonoscop y 06/2012, not due until 2021 - due for mammo, order given- discussed bone density screening; declined- f/u MWE 1 year, HTN 4 months Screening for malignant neoplasm of breast 813308163 Z12.31 Specialize d medical examination 75490874 Z01.419 Z12.4 Z11.51 Essential hypertension 91285878 I10 - stable- continue amlodipine 10mg daily, lisinopril 40mg daily, and metoprolol succinate ER 100mg daily- cmp wnl 10/2018; repeat by 10/2019 at latest- encouraged continued efforts on weight loss- follow up 4 months Depressive disorder 3548 9007 F33.1 - stable, PHQ 0/6, continue tx with psychiatri st (takes klonopin and lexapro from psych) Active or passive immunization 237883007 Z23 - educated, willing to proceed Increased body mass index 10148555 E66.3 - BMI 28.1- recent weight gain attributed to recent fracture; continue PT, continue weight watchers- f/u RD if hitting a road block Body mass index 25-29 - overweight 151995831 Z68.28 - as above Reduced libido 8985716 R 68.82 - reduced libido for many years, bothersome to pt- ddx: depression related, medication induced (escitalop arthur, beta binta), hormonal- see pt case 02/19/19 Loose stool 024371312 R1 9.5 - loose stools 2-3x/week in absence of other GI symptoms- encouraged to return to healthier diet (admits she has been eating junk)- f/u 2-4 weeks if loose stools do not resolve, may need to repeat colonoscop y (done 2012) [id number] Marily OVALLE [address] [place] [address] 09/12/2019 16:04:54 09/12/2019 17:21:49 Influenza vaccine needed 8919344520 106 Z23 - educated, declined Essential hypertension 54486310 I10 stablecont inue meds as belowlifes tyle interventi ons dicussedf/ u 6 months MWE with lipids and cmp Active or passive immunization 196232438 Z23 - educated, willing to proceed Increased body mass index 41426027 E66.3 - BMI 29- cont weight watchers- f/u as needed Body mass index 25-29 - overweight 870940989 Z68.25 - as above Screening for malignant neoplasm of breast 305966808 Z12.31 stressed importance of scheduling overdue mammogram [id number] Marily OVALLE [address] [place] [address] 06/04/2020 08:45:02 06/04/2020 11:56:41 Screening for malignant neoplasm of breast 785536313 Z12.31 stressed importance of scheduling overdue mammogram Essential hypertension 59829707 I10 unclear status of HTNawaitin g delivery of home BP monitor- should arrive by next week1. monitor BP daily or 3x/week if at goal; share log with provider at [facility] next month (pt unwilling to come into clinic re concerns about pandemic- discussed risks of not monitoring her kidney function)2 . continue amlodipine 10mg/day, lisinopril 40mg/day, metoprolol succinate 100 mg/day3. continue active lifestyle with healthy dietf/u [facility] 07/05 with colleague d/t my maternity leave Increased body mass index 91354144 E66.3 reports BMI is approachin g normal range- cont weight watchers- f/u as needed Body mass index 25-29 - overweight 552745276 Z68.25 - as above [id number] Kallie Cabe[address]as[address] [address] 07/05/2020 09:48:24 07/05/2020 12:24:50 Essential hypertension 24845421 I10 establishe d-takes amlodipine 10 mg QD, Lisinopril 40 mg QD, metoprolol ER 100 mg QD -home BP: 138-145/72 , HR 58 -no cp/sob/diz ziness/leg swelling -diet: weight watchers since november, has lost 35-40 lb, hasn't stopped salt -exercise: house cleaning (1 hr/day) -discussed increasing exercise, decreasing salt intake, continue working on diet/weigh t watchers rather than adding another BP med for now, to keep log of BP-decline s to meet w/ nutritioni st-f/u in 1-2 months Screening for malignant neoplasm of breast 653116941 Z12.31 stressed importance of scheduling overdue mammogram Increased body mass index 42385048 E66.3 BMI is now at normal range (current weight: 148 lb, BMI 24.6)- cont weight watchers- f/u as needed Body mass index 25-29 - overweight 421329199 Z68.25 - as above [id number] Kallie [address] [address] 07/20/2020 12:46:28 07/20/2020 18:48:14 Skin lesion 83643827 L98.9 skin blotches that are increasing in number on her legs-saw derm previously for same issue w/ hands, got injections and they resolved-w orsening-w ould like derm referral, referral mailed to pt's home (verified address) Essential hypertension 75281557 I10 establishe d-takes amlodipine 10 mg QD, Lisinopril 40 mg QD, metoprolol ER 100 mg QD -taking meds consistent ly-home BP: 130-145/73 -87, HR 58-65 -no cp/sob/diz ziness/leg swelling -diet: weight watchers since november, aware of salt intake and trying to use a little less -exercise: trying to walk more -discussed increasing exercise, decreasing salt intake, continue working on diet/weigh t watchers rather than adding another BP med for now, to keep log of BP-decline s to meet w/ nutritioni st-f/u in 1-2 months [id number] Yamile Parra PA-C [facility] [address] [place] [address] 01/26/2021 11:25:46 01/26/2021 14:29:39 Reduced libido 0359310 R68.82 60yo female with reduced libido for several years, recently becoming more bothersome -On multiple medication s from psych which may be contributi ng, has worked on decreasing medication -Discussed with patient need for OV to assess BP and possibly check labs-Encou raged healthy diet, good hydration and regular activity-W ill send case to [facility] gynecologi for recommenda tions for further work-up and potential treatment options for patient-Sc heduled for f/u with Reena Reagan PA-C as patient would like to continue care in [facility] office. Will send Sdzain recommenda tions to provider prior to f/u visit [id number] Reena Reagan PA-C [facility] [address] [place] [address] 03/11/2021 10:56:16 03/11/2021 13:32:25 Reduced libido 9405627 R68.82 Decreased desire for intimacy, however wanting to date men again since passed 3-4 years ago- multiple factors contributi ng to decreased libido including post-menop ausal, depression , bereavemen t, anxiety/st ress, and medication s (escitalop arthur and clonazepam )- discussed all recommenda tions from [facility], [facility] Consult as sent to this provider by Yamile Hurt (see case)- pt agreeable to start intrarosa 6.5 mg vaginal insert daily for 14 days, then twice weekly- discussed OTC DHEAS supplement - pt states psychoeduc ation/sex therapy and EROS clitoral stimulatio n device are way down the line - f/u with phone call in 3 weeks to discuss efficacy of vaginal insert [id number] Reena Reagan PA-C [facility] [address] [place] [address] 02/24/2022 08:42:07 02/24/2022 13:28:11 Adult health examination 258479718 Z00.00 Z12.31 61 year old female here for medicare wellness exam- physical exam unremarkab le, VSS- KENDALL 0 PHQ negative STEADI 1- discussed healthy lifestyle such as diet and daily exercise- pap up to date, due in 2023- never had mammogram, patient refuses. discussed risks vs benefits of screening- colonoscop y ordered below, last in 2011 normal- check routine labs- encouraged routine eye and dental checks- f/u 1 year for MWE or sooner as needed Screening for malignant neoplasm of colon 690308012 Z12.11 Routine screening colonoscop y, normal in 2011 Laboratory test 94188045 Z00.00 Essential hypertension 61937948 I10 Well controlled , remains asymptomat ic on amlodipine 10 mg, lisinopril 40 mg, and metoprolol 100 mg- follow up in 6 months- ED precaution s advised Impacted c erumen in left ear 1104268728 551436 H61.22 Denies muffled hearing or ear pain. Advised OTC debrox Sign or sy mptom of the urinary system 89744667 R39.9 61 yo female describes inconsiste nt urinary stream ongoing for quite some time. She will urinate normally but have to wait a little longer to completely empty bladder. She denies dysuria, urgency, frequency, hematuria, and thus declines UA. Discussed bladder muscle dysfunctio n. She elects to try kegal exercises and will follow up if symptoms persist or worsen. [id number] Reena Reagan PA-C [facility] [address] [place] [address] 09/22/2022 11:24:17 09/22/2022 13:03:34 Essential hypertension 19445895 I10 Well controlled , remains asymptomat ic on amlodipine 10 mg, lisinopril 40 mg, and metoprolol 100 mg- continue meds as prescribed - follow up in 6 months or sooner as needed- ED precaution s advised Obesity 074015563 E66.9 Body mass index 30+ - obesity 095429390 Z68.30 BMI 30.5. Encouraged healthy lifestyle and daily exercise Health Concerns Section Related Observation LastModified by Organization Detai ls LastModified Time None Recorded Concern Status LastModified by Organization Details LastModified Time None Recorded Advance Directives Directive Y: Payers Encounter Date Sequence Insurance Name Policy Number Policy Jones Covered Member ID Ojnes Member ID Guarantor Name 07/20/2020 1 [place] [employer] Genoveva M Allienello [id number] Genoveva Burkett Allbety 07/20/2020 2 HEALTH SAFETY NET Genoveva M Allienello [id number] Jackie Allienello 01/26/2021 1 [place] [employer] Genoveva M Allienello [id number] Genoveva Burkett Allienello 01/26/2021 2 HEALTH SAFETY NET Genoveva M Allienello [id number] Jackie Allienello 03/11/2021 1 [place] [facility] Genoveva M Allienello [id number] Genoveva Burkett Allienello 03/11/2021 2 HEALTH SAFETY NET Genoveva M Allienello [id number] Jackie Allienello 02/24/2022 1 [place] [facility]MENT SERVICES Genoveva M Allienello [id number] Genoveva Burkett Allienello 02/24/2022 2 HEALTH SAFETY NET Genoveva M Allienello [id number] Jackie Allienello 09/22/2022 1 [place] [facility] Genoveva M Allienello [id number] Genoveva Burkett Allienello 09/22/2022 [place] [facility] Genoveva Allienello [id number] Genoveva Alejandre Notes Date Note Type Note Provider Name and Address Organization Details Recorded Time 07/20/2020 text/html phone visit has some skin issues, would like derm referral 3-4 yrshas red blotches on hands, saw derm 1-2 yr ago, was told it was fungal and got injections and they resolved, now has them on shins and on top of feet-didn't have shots on legs at the time but haven't resolved looks like a ricco not itchy/painful lump on back, 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, 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 and can be tender [facility] 18:40:09 01/26/2021 text/html Patient contacte d via [facility] past away a few years agolooking into dating againstruggling with desire to have intercoursehas had this issue for a few years but now getting worsewants to kiss/date, but struggling with the urge to want toa few relationships have ended because of thisspoke to her psychiatrist, on medications and they were lowered as this was felt to be a triggerwould like to know what else she can do differently to improve this Yamile Parra PA-C [address] [place], [address], [facility] 02/01/2021 18:40:40 03/11/2021 text/html 60 yo F here to discuss decreased libido since passed 3-4 years ago- was not getting along with before he passed so unclear if there was decreased libido or decreased interest in her - interested in dating men again but no desire to be intimate- has met and dated a few men she met online but ended it prematurely because she knew she did not want to get intimate, which bothers her- has not tried anything for libido yet- she is taking escitalopram, but her psychiatrist Dr. El Eli at [facility] in [place] has cut her dose in half, currently taking 10 mg now for 3 weeks (depression stable at this dose, last had telehealth with him last month)- has been taking clonazepam 0.25 mg at night to help her sleep for the past 20 years- her friend just and her stress level has been high- she is feeling more tired and fatigued which is resolved by a 30 min nap daily- post-menopausal since brain surgery in 2001- see pt case from Yamile Hurt regarding recs from [facility] Reena Reagan PA-C [address] [place], [address], [facility] 03/11/2021 16:46:13 02/24/2022 text/html 61 yo female her e for Medicare Wellness Check- seeing psychiatrist, otherwise no other specialists- independent with iADLs and ADLs- no hospitalizations or surgeries in the past year- no recent falls incomplete urinationwill urinate normally but feels her stream is interruptedshe is able to completely empty bladder before she leaves bathroomdenies dysuria, frequency, urgency, hematuria, incomplete emptyingshe has never had a vaginal delivery , not sexually activeformer smokerno alcohollives with roommateunemployed Reena Reagan PA-C [address] [place], [address], [facility] 02/24/2022 13:06:37 09/22/2022 text/html HTN follow up taking amlodipine 10 mg, lisinopril 40 mg, and metoprolol 100 mgdenies cp, sob, dizziness, headacheformer smokerfeels well today, no concerns Reena Reagan PA-C [address] [place], [address], [facility] 09/22/2022 11:53:12 OBGyn Episode No OBEpisode recorded.
--- OUTSIDE RECORDS SUMMARY | 2024-09-11 15:04 | XMS_ITS | Encounter Summary ---
Author Organization [facility] Address [phone] [place] [address] Care Team Providers Care Machine Assembler Name Role Phone Pcp, Not Required Primary Care Provider Unavaila Marily Horton NP Primary Care Provider Marily Becker EAP COUNSELOR Unavailable [phone] Encounter Details Date Type Department Care Team (Late st Contact Info) Description 05/19/[address] [facility] [address] [place] [address] Kay Salcedo [address] [place] [address] [email or web address] Social History Tobacco Use Types Packs/Day Years Used Date Smoking Tobacco: Every Day Cigarettes Sex and Gender Information Value Date Recorded Sex Assigned at Not on file Gender Identity Not on file Sexual Orientation Not on file documented as of this encounter Plan of Treatment Not on file documented as of this encounter Results * MRI Spine Neurologic Focus Outside (No Interpretation) (05/19/2015 9:22 AM EDT) Narrative [facility] - 05/19/2015 9:22 AM EDT This study is for PACS storage only and not for interpretation. Laith CORTEZ OUTSIDE IMAGING W/OUT INTERPRETATION [facility] * MRI Brain Outside (No Interpretation) (05/19/2015 9:21 AM EDT) Narrative [facility] - 05/19/2015 9:21 AM EDT This study is for PACS storage only and not for interpretation. Laith CORTEZ OUTSIDE IMAGING W/OUT INTERPRETATION [facility] documented in this encounter Visit Diagnoses Not on filedocumented in this encounter Care Teams Machine Assembler Relationship Specialty Start Date End Date Pcp, Not Required [address] [place] [id number] PCP - General 02/10/14 02/05/19 Marily Becker NP [address] [place] [address] PCP - General Family Medicine 02/06/19 Marily Becker NP [address] [place] [address] Referring Physician Family Medicine 02/06/19 documented as of this encounter Additional Source Comments The information contained in this document represents components of the legal health record. It is not the complete legal health record.[facility]
--- OUTSIDE RECORDS SUMMARY | 2024-09-11 15:04 | XMS_ITS | Clinical Summary ---
Author Organization [facility] Address [phone] [place] [address] Care Team Providers Care Student Liaison Officer Name Role Phone Marily Becker NP Primary Care Provider Marily Becker GENERAL FOREMAN Unavailable [phone] Allergies Active Allergy Reactions Criticality Noted Date Comments Codeine Unknown 2001 Medications Medication Sig Dispensed Refills Start Date End Date Status clonazePAM (KLONOPIN) 0.5 MG tablet Take 0.5 mg by mouth nightly as needed for anxiety. Active MV,CA,MIN/IRON FUM/FA/VIT K (MULTI FOR HER ORAL) Take by mouth. Active cyanocobalamin (VIT B-12) 1000 MCG tablet Take 100 mcg by mouth daily. Active metoprolol succinate (TOPROL-XL) 25 MG 24 hr tablet Take 25 mg by mouth daily. Active oxyCODONE 5 MG immediate release tablet Dose: Not available; Form: Not available; Route: PO; Frequency: PRN pain; Directions: As directed, 1-2 tabs PO q4-6 hours prn pain. Please do not drive while on narcotic pain medications. Please read all package inserts and warnings prior to taking any medications; Details: Duration: 5 day(s); Dispense: 50 Tablet(s); Date: 05/14/2014 05/14/2014 Active PARoxetine (PAXIL CR) 25 MG 24 hr tablet Dose: Not available; Form: Take 1 Tablet(s); Route: PO; Frequency: QD; Directions: Not available; Details: Dispense: 30 Tablet(s); Date: 04/16/2003 04/16/2003 Active oxazepam (SERAX) 30 MG capsule Dose: Not available; Form: Take 1 Capsule(s); Route: PO; Frequency: QHS; Directions: Not available; Details: Dispense: 30 Capsule(s); Date: 04/16/2003 04/16/2003 Active Active Problems No known active problems Family History Medical History Relation Comments Tremor Neg Hx Social History Tobacco Use Types Packs/Day Years Used Date Smoking Tobacco: Every Day Cigarettes Education Answer Date Recorded Are you interested in more education? Not on greyson e 12/13/2022 Are you concerned about learning? Not on file 12/13/2022 No 12/13/2022 No 12/13/2022 Digital Access Answer Date Recorded No 01/07/2023 No 01/07/2023 No 01/07/2023 Reliable internet access at home? Not on file 01/07/2023 Device with a working camera? Not on file Sex and Gender Information Value Date Recorded Sex Assigned at Not on file Gender Identity Not on file Sexual Orientation Not on file Last Filed Vital Signs Vital Sign Reading Time Taken Comments Blood Pressure 143/85 09/22/2015 2:18 PM EST Pulse 77 09/22/2015 2:18 PM EST Temperature 36.1 ??C (96.9 ??F) 05/31/2015 11:06 AM E DT Respiratory Rate - - Oxygen Saturation 100% 09/22/2015 2:18 PM EST Inhaled Oxygen Concentration - - Weight 59 kg (130 lb) 09/22/2015 2:19 PM EST Height 162.6 cm (5' 4 ) 09/22/2015 2:19 PM EST Body Mass Index 22.31 09/22/2015 2:19 PM EST Plan of Treatment Health Maintenance Due Date Last Done Comments Adult Td,Tdap Booster 1960 LIPID PANEL 1960 DEPRESSION SCREENING 1970 SMOKING Hx and SMOKELESS TOBACCO SCREENING 10/26/1971 HEPATITIS B SCREENING 1976 HEPATITIS C SCREENING 1976 HIV ONE-TIME SCREENING (18-6 5 YEARS) 1976 PNEUMOCOCCAL VACCINES (50+ years) (1 of 2 - PCV) 1977 MAMMOGRAM 1998 COLOGUARD 10/26/2003 COLONOSCOPY 10/26/2003 COLORECTAL CANCER SCREENING 10/26/2003 FIT TEST 10/26/2003 FOBT 10/26/2003 SIGMOIDOSCOPY 10/26/2003 VIRTUAL COLONOSCOPY 10/26/2003 ZOSTER VACCINES (1 of 2) 2008 OSTEOPOROSIS SCREENING INITI AL (ONE-TIME) 10/26/2023 INFLUENZA VACCINE (#1) 2024 04/29/2020 COVID-19 VACCINE (3 - 2023-2 5 season) 2024 04/20/2021, 03/04/2021 RSV VACCINE (1 - 1-dose 75+ series) 2033 HEPATITIS A VACCINES Aged Out No long er eligible based on patient's age to complete this topic HEPATITIS B VACCINES Aged Out No long er eligible based on patient's age to complete this topic HIB VACCINES Aged Out No longer eligi ble based on patient's age to complete this topic MENINGOCOCCAL VACCINES (ACWY) Aged Out No longer eligible based on patient's age to complete this topic Medical Devices Not on file Genoveva Alejandre Personal/Family Self 1960 [address] [facility] [place] Genoveva David. Personal/Family Self 1960 [address] [facility] [place] Genoveva Alejandre. Personal/Family Self 1960 [address] [facility] [place] Genoveva David. Personal/Family Self 1960 [address] [facility] [place] Genoveva Alejandre. Personal/Family Self 1960 [address] [place], [place] Care Teams Student Liaison Officer Relationship Specialty Start Date End Date Marily Becker NP [address] [place] [address] PCP - General Family Medicine 02/06/19 Marily Becker NP [address] [place] [address] Referring Physician Family Medicine 02/06/19 Additional Source Comments The information contained in this document represents components of the legal health record. It is not the complete legal health record.[facility]
--- OUTSIDE RECORDS SUMMARY | 2024-09-11 15:04 | XMS_ITS ---
Author Organization [facility] Address [address] [place] [address] Care Team Providers Care Jewelry Sorter Name Role Phone Yamile Espinoza Unavailable [phone] Allergies Allergen (clinical drug ingredient) Drug/Non Drug Allergy documented on EMR Reaction Allergy Type Onset Date Status codeine Codeine itch Drug Allergy Active Social History Tobacco Use: Social History Observation Description Date Details (start date - stop date) Former Smoker NA - NA Tobacco Use/Smoking Question Answer Notes Are you a: former smoker Alcohol Screen Question Answer Notes Did you have a drink containing alcohol in the p ast year? No Points 0 Interpretation Negative Tobacco use other than smoking: Question Answer Notes Are you an other tobacco user? No Section Notes: vape Encounters Encounter Location Date Provider Diagnosis [address] [address] 06/07/2023 Yamile Espinoza Plan Of Treatment No Information Progress Notes * Genoveva LUKEDOB: (63 yo F)Acc No.[id number]:06/07/2023 Progress Notes Patient:?Genoveva LUKE Provider:?Yamile Espinoza DPM :1960???Age:62 Y???Sex:Female D ate:06/07/2023 Address:[address] [place], [place] [id number] Subjective: * Chief Complaints: * ??? * Medical History:?Depression, High blood pressure, Chicken pox. * Family History:?Mother: dece ased.?Father: .? * Social History:?Tobacco Use:?Tobacco Use/Smoking?Are you a:?former smoker ?Tobacco use other than smoking?Are you an other tobacco user??No ???Drugs/Alcohol:?Drugs?Have you used drugs other than those for medical reasons in the past 12 months??No ?Alcohol Screen?Did you have a drink containing alcohol in the past year??No ?Points?0 ?Interpretation?Negative ???Miscellaneous:?Caffeine: yes, 2-3 cups per day. ?Children: yes. ?Marital status: . ???vape. * Allergies:?Codeine: itch. Objective: * Vitals:? Assessment: Plan: * Treatment: * Images: * The named appointment provid er may or may not be the originator of this progress note, and it is not deemed complete until electronically signed by the appointment provider. Sign off status: Pending * Provider:?Yamile Espinoza DPM Date:? Generated for Sola barber/Saul/Samson on:?09/11/2024 03:04 PM EST
--- OUTSIDE RECORDS SUMMARY | 2024-09-11 15:04 | XMS_ITS | Encounter Summary ---
Author Organization [facility] Address [phone] [place] [address] Care Team Providers Care Campus Receptionist Name Role Phone Marily Becker HOSPITALITY DIRECTOR Primary Care Provider Marily Becker HOSPITALITY DIRECTOR Unavailable [phone] Encounter Details Date Type Department Care Team (Latest Contact Info) Description 02/10/2019 Ancillary Orders [facility], Mammography [address] [place] [address] Antonio Paula MD [address] [place] [address] Visit for screening mammogram Social History Tobacco Use Types Packs/Day Years Used Date Smoking Tobacco: Every Day Cigarettes Sex and Gender Information Value Date Recorded Sex Assigned at Not on file Gender Identity Not on file Sexual Orientation Not on file documented as of this encounter Plan of Treatment Not on file documented as of this encounter Visit Diagnoses Diagnosis Visit for screening mammogram documented in this encounter Care Teams Campus Receptionist Relationship Specialty Start Date End Date Marily Becker NP [address] [place] [address] PCP - General Family Medicine 02/06/19 Marily Becker NP [address] [place] [address] Referring Physician Family Medicine 02/06/19 documented as of this encounter Additional Source Comments The information contained in this document represents components of the legal health record. It is not the complete legal health record.[facility]
--- OUTSIDE RECORDS SUMMARY | 2024-09-11 15:04 | XMS_ITS ---
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 Generated for Niccii sunil/Saul/eTransmitting on:?09/11/2024 03:04 PM EST
--- OUTSIDE RECORDS SUMMARY | 2024-09-11 15:04 | XMS_ITS | Patient Health Record ---
[facility] Address [address] [place] [address] Care Team Providers Care Vice Admiral Name Role Phone Yamile Espinoza Unavailable [phone] Allergies Allergen (clinical drug ingredient) Drug/Non Drug Allergy documented on EMR Reaction Allergy Type Onset Date Status codeine Codeine itch Drug Allergy Active Reason For Referral No Information Social History Tobacco Use: Social History Observation [...] other tobacco user? No Section Notes: vape Plan Of Treatment No Information Insurance Providers Payer Name Payer Address Payer Phone Subscriber Number Group Number Insured Name Patient Relationship to Insured Coverage Start Date Coverage End Date Medicare [employer] [address] [place] [address] [id number] Genoveva Cintron Self - patient is the insured Medical (General) History Medical History History ICD Code Depression High blood pressure Chicken pox
--- OUTSIDE RECORDS SUMMARY | 2024-09-11 15:04 | XMS_ITS | Encounter Summary ---
Author Organization [facility] Address [phone] [place] [address] Care Team Providers Care Loom Setter Fourdrinier Name Role Phone Pcp, Not Required Primary Care Provider Unavaila Marily Horton MANAGER COMBINATION Primary Care Provider Marily Becker MANAGER COMBINATION Unavailable [phone] Encounter Details Date Type Department Care Team (Late st Contact Info) Description 11/16/2015 Procedure Pass [facility] Periop [address] [place] [address] Social History Tobacco Use Types Packs/Day Years Used Date Smoking Tobacco: Every Day Cigarettes Sex and Gender Information Value Date Recorded Sex Assigned at Not on file Gender Identity Not on file Sexual Orientation Not on file documented as of this encounter Plan of Treatment Not on file documented as of this encounter Visit Diagnoses Not on filedocumented in this encounter Care Teams Loom Setter Fourdrinier Relationship Specialty Start Date End Date Pcp, Not Required [address] [place] [address] PCP - General 02/10/14 02/05/19 Marily Becker NP [address] [place] [address] PCP - General Family Medicine 02/06/19 Marily Becker NP [address] [place] [address] Referring Physician Family Medicine 02/06/19 documented as of this encounter Additional Source Comments The information contained in this document represents components of the legal health record. It is not the complete legal health record.[facility]
== END 2024-09-11 12:31 | disposition home or self-care (01) ==
PROVIDERS: Visit Provider Physician Assistant
DX: M77.02 Medial epicondylitis, left elbow (principal); M77.11 Lateral epicondylitis, right elbow
CPT/HCPCS: 99203; G2211

== ENCOUNTER → 2024-09-11 11:15 | Outpatient (BNV) | payer MEDICARE, SELFPAY | PROVIDERS: Visit Provider Radiology Diagnostic Radiology | DX: M25.522 Pain in left elbow (principal) | CPT/HCPCS: 73080 ==

== ENCOUNTER 2024-09-12 10:04 | Outpatient (REF) | payer MEDICARE, SELFPAY ==
--- NOTE | ~2024-09-12 | XR_ITS ---
EXAMINATION: XR ELBOW, LEFT CLINICAL INFORMATION: M25.522 - Pain in left elbow COMPARISON: None available. TECHNIQUE: AP, lateral, and oblique views of the left elbow. FINDINGS: The bones and soft tissues are normal. No fracture or joint effusion. Alignment is anatomic. Joint spaces are maintained. XR/XR elbow LT min 3V IMPRESSION: Unremarkable left elbow. Electronically signed by: Robert Goetz MD 09/11/2024 01:16 PM EST
== END 2024-09-12 10:05 | disposition home or self-care (01) ==
LOC: HO.HOSX 10:04
PROVIDERS: Visit Provider Physician Assistant
DX: M25.522 Pain in left elbow (principal); M77.02 Medial epicondylitis, left elbow; M77.11 Lateral epicondylitis, right elbow
CPT/HCPCS: 73080; 99202